=== PATIENT | male | born 1980 | race Caucasian/White ===

== ENCOUNTER 2023-12-07 18:05 | Emergency (ER) | payer OTHER, SELFPAY ==
--- NOTE | ~2023-12-07 | XR_ITS ---
EXAMINATION: XR CHEST CLINICAL INFORMATION: Chest pain COMPARISON: None available. TECHNIQUE: 2 views of the chest were obtained. FINDINGS: No significant abnormality is noted involving the heart, lungs, mediastinum, bony thorax or soft tissues. XR/XR chest 2V IMPRESSION: Unremarkable examination.
[2023-12-07 19:01] VITALS: BP 117/72; PULSE 61; RESP 16; TEMP 37; O2SAT 100; BMI 27.0
--- NOTE | 2023-12-07 19:01 | ED_ITS ---
HPI - General Adult General Chief complaint: Chest Pain Stated complaint: Dizziness, SOB Related Data Allergies Allergy/AdvReac Type Severity Reaction Status Date / Time salmon oil Allergy Hives Verified 12/07/23 19:00 [facility] Social History Social History Advance Directives: No Advance Directives Information Provided: No Physical Exam ED Vital Signs: Vital Signs - 24 hr 12/07/23 19:01 12/07/23 23:35 Temperature 98.6 F 97.2 F Pulse Rate 61 53 Respiratory Rate 16 16 Blood Pressure 117/72 126/66 Pulse Oximetry 100 100 Oxygen Delivery Method Room Air Room Air BMI result Body Mass Index 27.0 Course Course Course Narrative: This is an RME: Additional HPI, ROS, PE not included below will be deferred to primary provider. This is a [id number], depression, presenting to the ER with a complaint of heart palpitations, slight headache, who presents to the ER with complaints of palpitations. Reports that he was getting his lexapro rx at [facility], prescriber left unable to fill rx until January. Plan: Labs, EKG, CXR Reevaluation(s) Reevaluation #1: pt left without completing treatment. Medical Decision Making Lab Data 12/07/23 19:23 12/07/23 19:23 Labs: Lab Results 12/07/23 Range/Units 19:23 WBC 6.0 (4.8-10.8) X10*3/uL RBC 5.19 (4.60-5.80) X10*6/uL Hgb 15.4 (14.0-18.0) g/dl Hct 44.4 (42.0-52.0) % MCV 85.5 (80.0-98.0) fL MCH 29.7 (27.0-33.0) pg MCHC 34.7 (31.0-36.0) g/dl RDW 12.2 (11.0-16.0) % Plt Count 191 (160-400) X10*3/uL MPV 9.8 (9.4-12.4) fL Immature Gran % (Auto) 0.2 (0.0-0.4) % Neut % (Auto) 53.1 (45-73) % Lymph % (Auto) 35.7 (20-40) % Dade % (Auto) 8.9 (2-11) % Eos % (Auto) 1.3 (0-4) % Baso % (Auto) 0.8 (0-2) % Lymph # (Auto) 2.1 (1.2-4.9) X10*3/uL Dade # (Auto) 0.5 (0.1-1.2) X10*3/uL Eos # (Auto) 0.1 (0.0-0.4) X10*3/uL Baso # (Auto) 0.1 (0.0-0.2) X10*3/uL Abs Immat Gran (auto) 0.01 (0.00-0.03) X10*3/uL Absolute Neuts (auto) 3.2 (2.0-8.3) x10*3/uL Absolute Nucleated RBC 0.000 (0.0-0.012) X10*3/uL Nucleated RBC % (auto) 0.0 (0.0-0.2) /100WBC Sodium 140 (135-145) mmol/L Potassium 3.5 (3.3-5.1) mmol/L Chloride 105 (96-108) mmol/L Carbon Dioxide 28 (22-29) mmol/L Anion Gap 11 L (12-20) BUN 22 H (9-16) mg/dL Creatinine 0.92 (0.5-1.4) mg/dL Estim Creat Clear Calc 115.9 Estimated GFR > 60 Random Glucose 98 (60-115) mg/dL Calcium 9.9 (8.4-10.2) mg/dL Magnesium 2.2 (1.6-2.6) mg/dL Total Bilirubin 0.5 (0.0-1.0) mg/dL Direct Bilirubin 0.2 (0.0-0.5) mg/dL AST 23 (5-37) U/L ALT 27 (0-40) U/L Alkaline Phosphatase 65 (39-117) U/L Troponin I High Sens < 2.7 (<3.5-35.0) ng/L Total Protein 7.4 (6.5-8.0) g/dL Albumin 4.6 (3.5-5.0) g/dL Lipase 28 (8-78) U/L TSH 1.72 (0.32-4.0) uIU/mL Discharge Plan Discharge Clinical Impression: Medication refill Patient Disposition: Left W/O Completing Treatment Discharge Date/Time: 12/08/23 01:40
--- NOTE | 2023-12-07 19:02 | ECG_ITS ---
Test Reason : gres Blood Pressure : / mmHG Vent. Rate : 057 BPM Atrial Rate : 057 BPM P-R Int : 172 ms QRS Dur : 088 ms QT Int : 398 ms P-R-T Axes : 050 078 052 degrees QTc Int : 387 ms Sinus bradycardia with sinus arrhythmia Otherwise normal ECG No previous ECGs available Referred By: Cecilia Cooper Electronically Signed By:Barrera Moreira
--- NOTE | 2023-12-07 19:24 | MHC.EDTECH ---
Patient brought into triage area,EKG taken per order and signed by provider,labs drawn and sent to lab.
[2023-12-07 19:29] LABS: MANUAL DIFF FLAG NO
[2023-12-07 19:30] LABS: Basophils Absolute Auto 0.1 X10*3/uL (0.0-0.2); Basophils Percent Auto 0.8 % (0-2); Eosinophils Absolute Auto 0.1 X10*3/uL (0.0-0.4); Eosinophils Percent Auto 1.3 % (0-4); Hematocrit 44.4 % (42.0-52.0); Hemoglobin 15.4 g/dl (14.0-18.0); Imm Gran Abs Auto 0.01 X10*3/uL (0.00-0.03); Imm Gran Pct Auto 0.2 % (0.0-0.4); Lymphocytes Absolute Auto 2.1 X10*3/uL (1.2-4.9); Lymphocytes Percent Auto 35.7 % (20-40); Mean Corpuscular HGB Conc 34.7 g/dl (31.0-36.0); Mean Corpuscular Hemoglobin 29.7 pg (27.0-33.0); Mean Corpuscular Volume 85.5 fL (80.0-98.0); Mean Platelet Volume 9.8 fL (9.4-12.4); Monocytes Absolute Auto 0.5 X10*3/uL (0.1-1.2); Monocytes Percent Auto 8.9 % (2-11); Neutrophils Absolute Auto 3.2 x10*3/uL (2.0-8.3); Neutrophils Percent Auto 53.1 % (45-73); Platelet Count 191 X10*3/uL (160-400); Red Blood Count 5.19 X10*6/uL (4.60-5.80); Red Cell Distribution Width 12.2 % (11.0-16.0)
[2023-12-07 19:59] LABS: Alanine Aminotransferase 27 U/L (0-40); Albumin Level 4.6 g/dL (3.5-5.0); Alkaline Phosphatase 65 U/L (39-117); Anion Gap 11 (12-20); Aspartate Amino Transferase 23 U/L (5-37); Bilirubin Direct 0.2 mg/dL (0.0-0.5); Bilirubin Total 0.5 mg/dL (0.0-1.0); Blood Urea Nitrogen 22 mg/dL (9-16); Calcium 9.9 mg/dL (8.4-10.2); Carbon Dioxide 28 mmol/L (22-29); Chloride 105 mmol/L (96-108); Creatinine Clr Calc Pharmacy 115.9; Estimated Glomerular Filt Rate > 60; Glucose Random 98 mg/dL (60-115); Lipase 28 U/L (8-78); Magnesium 2.2 mg/dL (1.6-2.6); Potassium 3.5 mmol/L (3.3-5.1); Sodium 140 mmol/L (135-145); Total Protein 7.4 g/dL (6.5-8.0); Troponin-I High Sensitivity < 2.7 ng/L (<3.5-35.0)
[2023-12-07 20:23] LABS: TSH reflex Free T4 1.72 uIU/mL (0.32-4.0)
[2023-12-07 23:35] VITALS: BP 126/66; PULSE 53; RESP 16; TEMP 36.2; O2SAT 100
== END 2023-12-08 01:40 | disposition left against medical advice (07) ==
PROVIDERS: Physician Assistant Medical; Emergency Provider Physician Assistant
DX: R00.2 Palpitations (principal); Z76.0 Encounter for issue of repeat prescription; R51.9 Headache, unspecified; F32.A Depression, unspecified
CPT/HCPCS: 36415; 71046; 80048; 80076; 83690; 83735; 84443; 84484; 85025; 93005; 99283

== ENCOUNTER → 2023-12-07 19:02 | Outpatient (BNV) | payer OTHER, SELFPAY | PROVIDERS: Emergency Provider Physician Assistant; Visit Provider Internal Medicine Cardiovascular Disease | DX: R07.9 Chest pain, unspecified (principal) | CPT/HCPCS: 93010 ==

== ENCOUNTER 2025-01-28 07:24 | Outpatient (AMB) | payer OTHER, SELFPAY ==
--- OUTSIDE RECORDS SUMMARY | 2025-01-28 07:26 | XMS_ITS ---
Author Name [facility] Organization Unknown Problems Problem Status Onset Date Problem Type Date of Resoluti on Source Depression active 2023-06-15 [facility] Need for hepatitis B vaccination active 2023-06-14 ProblemAct [facility] Inguinal hernia, right active 2023-06-15 ProblemAct [facility] Elevated BUN active EncounterDiagnosisAct [facility] Vitamin D deficiency active 2023-06-10 ProblemAct [facility] Lumbar herniated disc active 2023-06-15 ProblemAct [facility] Immunizations Vaccine Date Source Lot Number Status Hepatitis B 06/14/2023 [facility] [id number] completed Encounters Encounter Type Encounter Reason Primary Diagnosis Location Date Ambulatory Injections Injections [facility] 06/14/2023 Ambulatory Encounter for general adult medical examination without abnormal findings Encounter for general adult medical examination without abnormal findings [facility] 06/10/2023 Care Team Organization Name Specialty Phone Email Start Date End Da te [facility] KAJAL ESTEVEZ [facility] 06/10/2023 11/29/19 [facility] K[facility]al Estevez [facility] 06/10/2023 06/10/20 23 [facility] MIKE PHELPS [facility] 06/10/2023 023
--- OUTSIDE RECORDS SUMMARY | 2025-01-28 07:27 | XMS_ITS | Encounter Summary ---
Author Organization [facility] Address [address] [place] [id number] Care Team Providers Care Intranet Specialist Name Role Phone Kajal Estevez APRN Primary Care Provider Encounter Details Date Type Department Care Team (Late st Contact Info) Description 03/05/2024 Scanned Document [facility] Department of [facility] [place] [address] [place] [address] Kajal Estevez APRN 1 [facility] [address] [place] [address] Social History Tobacco Use Types Packs/Day Years Used Date Smoking Tobacco: Never Assessed Sex and Gender Information Value Date Recorded Sex Assigned at Not on file Legal Sex Male 11:32 PM EDT Gender Identity Not on file Sexual Orientation Not on file documented as of this encounter Plan of Treatment Not on file documented as of this encounter Visit Diagnoses Not on filedocumented in this encounter Care Teams Intranet Specialist Relationship Specialty Start Date End Date Kajal Estevez APRN PCP - General Internal Medicine 06/10/23 documented as of this encounter
--- OUTSIDE RECORDS SUMMARY | 2025-01-28 07:27 | XMS_ITS | Clinical Summary ---
Author Organization [facility] Address [address] [place] [address] Care Team Providers Care Director Broadcast Name Role Phone Kajal Estevez APRN Primary Care Provider [phone] Allergies No known active allergies Medications escitalopram (LEXAPRO) 20 MG tablet Take 20 mg by mouth every morning. 05/29/2023 Active Active Problems Problem Noted Date Diagnosed Date Inguinal hernia, right 06/15/2023 Lumbar herniated disc 06/15/2023 06/15/2023 Depression 06/15/2023 Assessment & Plan (06/15/2023 5:20 PM EDT): Stable. Continue lexapro as prescribed. Denies thoughts of suicide and self harm. Patient to continue to follow up with Kajal Olson of [facility] as recommended by provider. Annual physical exam 06/15/2023 Assessment & Plan (06/15/2023 5:21 PM EDT): Labs ordered. tdap vaccine administered without complication to left deltoid. Patient tolerated vaccine well. Patient to schedule physical exam within the next few months but is encouraged to call office sooner as needed. Vitamin D deficiency 06/10/2023 Resolved Problems Problem Noted Date Diagnosed Date Resolved Date Need for hepatitis B vaccination 06/14/2023 11/23/2023 Immunizations Immunization Administration Dates Next Due Hepatitis B 06/14/2023 Social History Tobacco Use Types Packs/Day Years Used Date Smoking Tobacco: Never Assessed Sex and Gender Information Value Date Recorded Sex Assigned at Not on file Legal Sex Male 11:32 PM EDT Gender Identity Not on file Sexual Orientation Not on file Last Filed Vital Signs Vital Sign Reading Time Taken Comments Blood Pressure 127/58 06/10/2023 11:55 AM EDT Pulse 60 06/10/2023 11:55 AM EDT Temperature - - Respiratory Rate - - Oxygen Saturation 98% 06/10/2023 11:55 AM EDT Inhaled Oxygen Concentration - - Weight 87.6 kg (193 lb 3.2 oz) 06/10/2023 11:55 AM EDT Height - - Body Mass Index - - Plan of Treatment Health Maintenance Due Date Last Done Comments Hepatitis C Virus Screening 1982 HIV Screening 1995 DTaP/Tdap/Td Vaccines (1 - Tdap) 2001 Hepatitis B Vaccines (2 of 3 - 19+ 3-dose series) 07/12/2023 06/14/2023 COVID-19 Vaccine ( - 2023-2 5 season) 2024 Influenza Vaccine 04/12/2025 HPV Vaccines Aged Out No longer eligi ble based on patient's age to complete this topic Pneumococcal Vaccine: Pediat cyndie (0-5 Years) and At-Risk Patients (6 to 49 Years) Aged Out No longer eligible b ased on patient's age to complete this topic Insurance Care Teams Director Broadcast Relationship Specialty Start Date End Date Kajal Estevez APRN PCP - General Internal Medicine 06/10/23
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
--- OUTSIDE RECORDS SUMMARY | 2025-01-28 07:27 | XMS_ITS | Encounter Summary ---
Author Organization [facility] Address [address] [place] [address] Care Team Providers Care Veterinary Medicine Scientist Name Role Phone Kajal Estevez APRN Primary Care Provider Encounter Details Date Type Department Care Team (Late st Contact Info) Description 06/25/2023 Scanned Document Jonah Massey Department of Internal Medicine [place] [address] [place] [address] Kajal Estevez APRN 1 [facility] [address] [place] [address] Social History Tobacco Use Types Packs/Day Years [...] on filedocumented in this encounter Care Teams Veterinary Medicine Scientist Relationship Specialty Start Date End Date Kajal Estevez APRN PCP - General Internal Medicine 06/10/23 documented as of this encounter
--- OUTSIDE RECORDS SUMMARY | 2025-01-28 07:27 | XMS_ITS | Encounter Summary ---
Author Organization [facility] Address [address] [place] [address] Care Team Providers Care Behavioral Health Aide Name Role Phone Kajal Estevez APRN Primary Care Provider Encounter Details Date Type Department Care Team (Late st Contact Info) Description 06/17/2023 Scanned Document Jonah Physicians Department of Internal Medicine [place] [address] [place] [address] Kajal Estevez APRN 1 [facility] [address] [place] [address] Social History Tobacco Use Types Packs/Day Years [...] on filedocumented in this encounter Care Teams Behavioral Health Aide Relationship Specialty Start Date End Date Kajal Estevez APRN PCP - General Internal Medicine 06/10/23 documented as of this encounter
--- NOTE | 2025-01-28 07:41 | MHC.PC.OV ---
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 Note: Pt is here as a new patient to [facility] and get med refills Allergies salmon oil Allergy (Verified 01/28/25 08:01) Hives Medication List - Last [facility]alate 20 mg PO DAILY Tobacco use date assessed: 01/28/25 Dental Screening Dental Screen Date: 01/28/25 Did you have a dental visit in the last 12 months?: No Did you have a dental problem in the last 6 months where you did not have access to dental care?: No Was dental information given to patient?: No HPI TALENT SPECIALIST - med refill HPI Details History of Present Illness The patient is a 44-year-old male presenting for a physical examination as a new patient. He has a past medical history of anxiety and depression, which are currently managed with escitalopram. The patient reports adhering to this medication regimen and indicates that his condition is well-controlled, with no recent exacerbations or new symptoms. He denies experiencing any fever, chills, vision changes, respiratory issues, gastrointestinal distress, or urinary concerns. He has a surgical history including an appendectomy conducted in the early and two instances of left inguinal hernia repair, with the latest involving mesh placement. The patient reports satisfactory recovery and no ongoing issues related to these procedures. The physical examination conducted during this visit was unremarkable, and upcoming laboratory tests have been planned to complete his health assessment. Health Maintenance - Plan for future laboratory tests to monitor overall health status Social History Review of Systems - Constitutional: Denies fevers, chills - Eyes: Denies blurred vision - Cardiovascular: Denies chest pain - Respiratory: Denies shortness of breath - Gastrointestinal: Denies abdominal pain, blood in stool, constipation, diarrhea - Genitourinary: Denies urinary issues Physical Exam General: Cooperative, healthy appearing, comfortable, no acute distress and well developed Orientation: Patient oriented x3 Limitations: No limitations Head: Normal to inspection Ears: Hearing grossly normal bilaterally Nose: Normal external nose present Face and sinus: Normal facial exam Eyes: Appearance normal, both eyes and all related structures Neck: Normal visual inspection and Yes full ROM Respiratory: Normal respiratory effort and able to speak in complete sentences. Clear to auscultation bilaterally Cardiovascular: Regular rate and rhythm. Normal S1 and S2 GI: Normal to inspection. Soft to palpation and nontender Skin: No rashes or lesions noted Neuro: Patient oriented x3 Extremities: Normal to inspection Results Plan The patient presented for a physical examination to establish care. His anxiety and depression are well-managed with escitalopram; no changes are needed. The physical exam was unremarkable. Future labs are planned for ongoing health assessment. He is counseled on monitoring for hernia symptoms given his surgical history. The patient agreed to follow the outlined management strategy. Discussion Notes I discussed with the patient his current state of health, highlighting that his anxiety and depression appear to be well-managed on escitalopram. I explained the importance of regular health monitoring and the rationale for planned future laboratory evaluations. Given his surgical history, I advised staying aware of any symptoms indicating hernia recurrence. We reviewed the potential signs to watch for and agreed on the importance of routine follow-up visits for comprehensive care. The patient is comfortable with the management plan and agreed to the proposed course of action. Patient Instructions - Continue taking your medication as prescribed for anxiety and depression. - Look out for any hernia-related symptoms and report them if they occur. - Attend planned lab tests for further health assessment. - Follow up with routine health checks and appointments. [facility] Family History Father Substance use disorder Mental health disorder Mother Substance use disorder Mental health disorder Social History Housing: House Patient Tobacco Use Status: Former Tobacco user e-Cigarette/Vaping Use: Never Used service: No Current occupational status: employed Cognitive needs: No Hearing needs: No Vision needs: Yes Questionnaire PHQ-9 Over the last 2 weeks, how often have you been bothered by any of the following problems? 19450 - PHQ-9 Billing: Patient declined-do not bill Source: Developed by Drs. Willem Bay, Celeste Orozco, Phil Hoang and colleagues, with an educational isrrael from [employer]. Physical exam (Primary Care) Vital Signs: Last Vital Signs Temp 98.2 F 01/28/25 07:44 Pulse 57 01/28/25 07:44 Resp 16 01/28/25 07:44 Pulse Ox 98 01/28/25 07:44 Oxygen Delivery Method Room Air 01/28/25 07:44 BMI result Body Mass Index 29.4 Coding Level of Care Code New Pt Prev Care 40-64y(05400) Diagnoses Physical exam Z00. Anxiety and depression F41.9; F32.A Assessment & Plan Assessment & Plan (1) Physical exam: Code(s): Z00.00 - Encounter for general adult medical examination without abnormal findings Category: Medical Plan: . (2) Anxiety and depression: Code(s): F41.9 - Anxiety disorder, unspecified; F32.A - Depression, unspecified Category: Medical Plan . Orders: Orders TSH reflex Free T4 Today Z00.00 - Encounter for general adult medical examination without abnormal findings UA CC w/rflx Micro + Cult Today Z00.00 - Encounter for general adult medical examination without abnormal findings Complete Blood Count Auto Diff Today Z00.00 - Encounter for general adult medical examination without abnormal findings Comprehensive [place]. Panel Fast Today Z00.00 - Encounter for general adult medical examination without abnormal findings Lipid Panel Today Z00.00 - Encounter for general adult medical examination without abnormal findings
[2025-01-28 07:44] VITALS: BP 110/80; PULSE 57; RESP 16; TEMP 36.8; O2SAT 98; BMI 29.4
== END 2025-01-28 07:58 | disposition home or self-care (01) ==
PROVIDERS: Visit Provider Nurse Practitioner Family
DX: Z00.00 Encounter for general adult medical examination without abnormal findings (principal); F41.9 Anxiety disorder, unspecified; F32.A Depression, unspecified

== ENCOUNTER → 2025-01-28 07:24 | Outpatient (BNVA) | payer OTHER, SELFPAY | PROVIDERS: Visit Provider Nurse Practitioner Family ==

== ENCOUNTER 2025-05-19 19:28 | Emergency (ER) | payer OTHER, SELFPAY ==
[2025-05-19 19:52] VITALS: BP 134/56; PULSE 62; RESP 16; TEMP 37.1; O2SAT 98; BMI 29.0
--- NOTE | 2025-05-19 19:55 | ED.GENADULT ---
HPI - General Adult General Chief complaint: General Medical Stated complaint: sinus infection Time Seen by Provider: 05/19/25 20:05 Source: patient Mode of arrival: ambulatory Limitations: no limitations History of Present Illness ED Provider: Yobani Bowers HPI narrative: 44 yold male presents to the ED for maxillary sinus pain with green nasal discharge. patient states no chest pain, shorntess of breath, or recent trauma. Related Data Previous Rx's ?Medication ?Instructions ?Recorded escitalopram oxalate 20 mg tablet 20 mg PO DAILY #90 tabs 08/01/24 amoxicillin 875 mg-potassium 1 tab PO Q12H 10 days #20 tabs 05/19/25 clavulanate 125 mg tablet naproxen 500 mg tablet 500 mg PO BID PRN pain #14 tabs 05/19/25 triamcinolone acetonide 55 mcg 2 spray intranasal DAILY 1 week 05/19/25 nasal spray aerosol (Nasacort) #16.9 mL Allergies Allergy/AdvReac Type Severity Reaction Status Date / Time salmon oil Allergy Hives Verified 05/19/25 19:54 Review of Systems Review of Systems: nasal discharge and sinus pain Yes all other systems are reviewed and are negative [facility] Family History Family History Father Substance use disorder Mental health disorder Mother Substance use disorder Mental health disorder Social History Social History Housing: House Patient Tobacco Use Status: Former Tobacco user e-Cigarette/Vaping Use: Never Used Advance Directives: No Advance Directives Information Provided: Yes Do you have a plan to hurt others: No Plan service: No Current occupational status: employed Cognitive needs: No Hearing needs: No Vision needs: Yes Physical Exam ED Vital Signs: Vital Signs - 24 hr 05/19/25 19:52 Temperature 98.7 F Pulse Rate 62 Respiratory Rate 16 Blood Pressure 134/56 L Pulse Oximetry 98 Oxygen Delivery Method Room Air BMI result Body Mass Index 29.0 Const Orientation/consciousness: patient oriented x3 HENMT Head: Yes normal to inspection, Yes No palpable skull fracture present, Yes normocephalic and Yes atraumatic Ears: hearing grossly normal bilaterally, external ears normal, TM's normal bilaterally and TM normal on the right Face and sinus: Yes sinus tenderness (maxillary, nasal green discharge) Throat: Yes posterior oropharynx normal, Yes tonsils normal and Yes uvula midline Eyes General: appearance normal, both eyes and all related structures Neck Neck: Yes normal visual inspection, Yes full ROM, Yes no lymphadenopathy, Yes no meningeal signs, Yes trachea midline, Yes supple, No anterior neck swelling and No tender Chest Chest palpation & inspection: normal inspection of the chest and normal palpation of entire chest wall Resp Effort & Inspection: normal respiratory effort and able to speak in complete sentences Auscultation: clear to auscultation bilaterally Cardio Jugular venous distension: no JVD Heart sounds: S1 normal heart sound present and S2 normal heart sound present GI Inspection: Yes normal to inspection Palpation (GI): not firm, nontender, no guarding and not rigid General: Yes no CVA tenderness Back/Spine/Pelvis Back: no CVA tenderness and No back tenderness Skin General skin exam: no rashes or lesions noted, elasticity normal and turgor normal Neuro General: patient oriented x3, gait normal, tone normal, moves all extremities, Normal light touch and pain sensation, no meningeal signs, no focal motor deficits, CN's II-XI intact bilaterally and normal sensation to monofilament Extrem General: Yes normal to inspection, Yes full ROM and Yes capillary refill normal Psych Appearance: grossly normal, well kempt and not disheveled Course Course Course Narrative: RmE: 44-year-old male presents to ED for bilateral maxillary sinus pain with green discharge for the past 2 weeks. Patient denies any chest pain or shortness of breath. Physical exam positive for maxillary sinus tenderness on palpation. SARs strep ordered Medical Decision Making Medical Decision Making [facility] Narrative: [age] year male presents to ED for maxillary sinus pain bilaterally with green drainage for the past 2 weeks. Patient denies any chest pain, shortness of breath, coughing up blood, fever and chills. COVID influenza strep ordered. 8:51pm: Covid, influneza, strep came back negative. patient well appearing. patient will be treated as sinusitis. patient expalined worrisome signs and informed to reutn to the ED. Differential Diagnosis Differential Diagnoses: The differential diagnosis associated with the presentation includes (covid, influenza, and RSV) Admission/Observation Consideration of admission/observation: Escalation of care including admission/observation considered Lab Data [facility] Lab Attestation statement: I reviewed the patient's lab results. Labs: Lab Results 05/19/25 05/19/25 Range/Units 20:01 20:03 COVID-19 (LUIS) Negative (Negative) COVID-19 Clin Com See Note Influenza Type A (MERCEDES) Negative (Negative) Influenza Type B (MERCEDES) Negative (Negative) Influenza A & B Note See Note S. pyogenes GrpA MERCEDES Negative (Negative) Independent Historian Clinical information obtained from an independent historian. History obtained from or confirmed by: Other (patient) Prescription Management I considered prescription management with: Pain Medication and Antibiotic Discharge Plan Discharge Clinical Impression: Sinusitis Patient Disposition: Home, Self-Care Instructions: Sinusitis (ED) Additional Instructions: You you will be discharged with antibiotics and nasal spray. Recommend follow-up with your primary care provider. Return to the ED immediately for any chest pain, shortness of breath, worsening nasal discharge, headache, dizziness, intractable fever, chills, or any other concerning symptoms. Prescriptions: New amoxicillin-pot clavulanate 875-125 mg tablet 1 tab PO Q12H 10 Days Qty: 20 0RF triamcinolone acetonide [Nasacort] 55 mcg aerosol,spray 2 spray intranasal DAILY 7 Days Qty: 16.9 0RF Rx Instructions: administer into each nostril naproxen 500 mg tablet 500 mg PO BID PRN (Reason: pain) Qty: 14 0RF No Action escitalopram oxalate 20 mg tablet 20 mg PO DAILY Qty: 90 0RF Stand Alone Forms: Work/School Release Interventions: ED Discharge Assessment Last Done: 05/19/25 21:15 Discharge Date/Time: 05/19/25 21:16 Print Language: Georgian
--- OUTSIDE RECORDS SUMMARY | 2025-05-19 20:24 | XMS_ITS | Encounter Summary ---
Author Organization [facility] Address [address] [place] [address] Care Team Providers Care Clutch Rebuilder Name Role Phone Kajal Estevez APRN Primary Care Provider [phone] Encounter Details Date Type Department Care Team (Late st Contact Info) Description 03/05/2024 Scanned Document [facility] Department of Internal Medicine [place] [address] [place] [address] Kajal Estevez APRN 1 [facility] 2 [place] [address] Social History Tobacco Use Types Packs/Day Years [...] on filedocumented in this encounter Care Teams Clutch Rebuilder Relationship Specialty Start Date End Date Kajal Estevez APRN PCP - General Internal Medicine 06/10/23 documented as of this encounter
--- OUTSIDE RECORDS SUMMARY | 2025-05-19 20:24 | XMS_ITS | Encounter Summary ---
Author Organization [facility] Address [address] [place] [address] Care Team Providers Care Pipe Organ Builder Name Role Phone Kajal Estevez APRN Primary Care Provider [phone] Encounter Details Date Type Department Care Team (Late st Contact Info) Description 06/17/2023 Scanned Document [facility] Department of Internal Medicine [place] [address] [place] [address] Kajal Estevez APRN 1 [facility] 2 [place] [address] Social History Tobacco Use Types Packs/Day Years [...] on filedocumented in this encounter Care Teams Pipe Organ Builder Relationship Specialty Start Date End Date Kajal Estevez APRN PCP - General Internal Medicine 06/10/23 documented as of this encounter
--- OUTSIDE RECORDS SUMMARY | 2025-05-19 20:24 | XMS_ITS | Clinical Summary ---
Author Organization [facility] Address [address] [place] [address] Care Team Providers Care Assembler Flexible Leads Name Role Phone Kajal Estevez APRN Primary Care Provider [phone] Allergies No known active allergies Medications escitalopram [...] to follow up with Kajal Olson of [facility] as recommended by provider. Annual physical [...] 1995 DTaP/Tdap/Td Vaccines (1 - Tdap) 2001 HPV Vaccines (1 - 3-dose SCD M series) 2009 Hepatitis B Vaccines (2 of 3 - 19+ 3-dose series) 07/12/2023 06/14/2023 COVID-19 Vaccine (1 - 2023-2 5 season) 2024 Influenza Vaccine 04/12/2025 Pneumococcal Vaccine: Pediat cyndie (0-5 Years) and At-Risk Patients (6 to 49 Years) Aged Out No longer eligible b ased on patient's age to complete this topic Insurance Care Teams Assembler Flexible Leads Relationship Specialty Start Date End Date Kajal Estevez APRN PCP - General Internal Medicine 06/10/23
--- OUTSIDE RECORDS SUMMARY | 2025-05-19 20:24 | XMS_ITS | Encounter Summary ---
Author Organization [facility] Address [address] [place] [address] Care Team Providers Care Foundry Process Engineer Name Role Phone Kajal Estevez APRN Primary Care Provider Encounter Details Date Type Department Care Team (Late st Contact Info) Description 06/25/2023 Scanned Document [facility] Department of Internal Medicine [place] [address] [place] [address] Kajal Estevez APRN 1 [facility] 2 [place] [address] Social History Tobacco Use Types Packs/Day Years [...] on filedocumented in this encounter Care Teams Foundry Process Engineer Relationship Specialty Start Date End Date Kajal Estevez APRN PCP - General Internal Medicine 06/10/23 documented as of this encounter
--- OUTSIDE RECORDS SUMMARY | 2025-05-19 20:24 | XMS_ITS ---
[...] Primary Diagnosis Location Date Ambulatory Injections Injections [facility] 06/14/2023 Ambulatory Encounter for general adult medical examination without abnormal findings Encounter for general adult medical examination without abnormal findings [facility] 06/10/2023 Care Team Organization Name Specialty Phone Email Start Date End Da te [facility] KAJAL ESTEVEZ Primary Care 06/10/2023 11/29/19 [facility] Kajal Estevez Primary Care 06/10/2023 06/10/20 23 [facility] MIKE PHELPS Primary Care 06/10/2023 023
--- OUTSIDE RECORDS SUMMARY | 2025-05-19 20:24 | XMS_ITS | Clinical Summary ---
Author Organization [facility] Address [address] [place] [address] Phone Care Team Providers Care Metal Engineering Process Worker Name Role Phone Pcp, Unknown Primary Care Provider Unavailabl e Allergies No known active allergies Medications escitalopram oxalate (LEXAPRO) 20 MG tablet Take 20 mg by mouth every morning. Active Social History Tobacco Use Types Packs/Day Years Used Date Smoking Tobacco: Never Assessed Education Answer Date Recorded Are you interested in more education? Not on evert e 09/13/2023 Are you concerned about learning? Not on file 09/13/2023 No 09/13/2023 No 09/13/2023 Digital Access Answer Date Recorded No 09/13/2023 No 09/13/2023 Reliable internet access at home? Not on file 09/13/2023 Device with a working camera? Not on file Sex and Gender Information Value Date Recorded Sex Assigned at Not on file Legal Sex Male 3:03 PM EDT Gender Identity Not on file Sexual Orientation Not on file Last Filed Vital Signs Vital Sign Reading Time Taken Comments Blood Pressure 125/66 04/08/2015 8:51 AM EDT Pulse 70 04/08/2015 8:51 AM EDT Temperature - - Respiratory Rate - - Oxygen Saturation - - Inhaled Oxygen Concentration - - Weight 97.5 kg (215 lb) 04/08/2015 8:51 AM EDT Height 180.3 cm (5' 11 ) 04/08/2015 8:51 AM EDT Body Mass Index 29.99 04/08/2015 8:51 AM EDT Plan of Treatment Health Maintenance Due Date Last Done Comments LIPID PANEL 1982 DEPRESSION SCREENING 1994 SMOKING Hx and SMOKELESS TOBACCO SCREENING 1995 HEPATITIS C SCREENING 2000 HIV ONE-TIME SCREENING (18-6 5 YEARS) 2000 Adult Td,Tdap Booster 07/05/2023 07/05/2013 COVID-19 VACCINE (3 - 2023-2 5 season) 2024 10/28/2020, 10/01/2020 INFLUENZA VACCINE (#1) 2025 4, 07/05/2013 HEPATITIS A VACCINES Aged Out No long er eligible based on patient's age to complete this topic HIB VACCINES Aged Out No longer eligi ble based on patient's age to complete this topic MENINGOCOCCAL VACCINES (ACWY) Aged Out No longer eligible based on patient's age to complete this topic MENINGOCOCCAL VACCINES (B) Aged Out N o longer eligible based on patient's age to complete this topic PNEUMOCOCCAL VACCINES (0-49 years) Aged Out No longer eligible b ased on patient's age to complete this topic Medical Devices Not on file [facility] [place] [address] [place], [place] [address]O [facility] Member Subscriber Plan / Payer (Ef fective 2018-Present) Name:King Evans Relation to Subscriber:Self Name:King Evans Payer ID:Not on file [place] Address: [place] [phone] Care Teams Metal Engineering Process Worker Relationship Specialty Start Date End Date Pcp, Unknown PCP - General 09/13/23 Additional Source Comments The information contained in this document represents components of the legal health record. It is not the complete legal health record.[facility]
[2025-05-19 20:45] LABS: IDNOW Serial# 08D9AD1C; Influenza B2 Negative (Negative)
[2025-05-19 20:45] LABS: COVID-19 Test Negative (Negative); IDNOW Serial# 55D5AD1C
[2025-05-19 20:46] LABS: IDNOW Serial# 58CA691E; Strep A Nucleic Acid Negative (Negative)
[2025-05-19 21:15] VITALS: BP 134/56; PULSE 62; RESP 16; TEMP 37.1; O2SAT 98
== END 2025-05-19 21:16 | disposition home or self-care (01) ==
PROVIDERS: Physician Assistant; Emergency Provider Emergency Medicine Emergency Medical Services; PCP Nurse Practitioner Family
DX: J01.00 Acute maxillary sinusitis, unspecified (principal); Z11.52 Encounter for screening for COVID-19; Z03.818 Encounter for observation for suspected exposure to other biological agents ruled out; Z87.891 Personal history of nicotine dependence
CPT/HCPCS: 87502; 87635; 87651; 99282; 99283